=== PATIENT | female | born 1950 | race Two or more races ===

== ENCOUNTER 2024-04-17 03:44 | Emergency (ER) | payer OTHER ==
[~2024-04-17] VITALS: Ht 157.5 cm; Wt 95.7 kg
--- NOTE | 2024-04-17 04:13 | ED.PDOC ---
GI ASSESSMENT HPI Comments 73 year old female presents to the ED with a chief complaint on constipation onset 4 days. Patient states she has not had a bowel movement for the past 4 days and is currently experiencing rectal pain. Patient denies nausea, vomiting, diarrhea, abdominal pain, fever, dysuria, hematuria, chest pain, shortness of breath. No other symptoms or modifying factors present at this time. Chief Complaint: Constipation Time Seen by MD: 04:06 Reviewed Notes: Medications, Allergies Allergies: Coded Allergies: NO KNOWN ALLERGIES (Unverified , 04/17/24) Home Meds Active Scripts Bisacodyl (Dulcolax) 10 Mg Sup, 10 MG RE Q4HP PRN for 10 Days, #30 SUPP Prov:CAMERON RUBI MD 04/17/24 Polyethylene Glycol 3350 (Miralax) 17 Gm Pow, 17 GM PO BID for 100 Days, #1000 POW Prov:CAMERON RUBI MD 04/17/24 Information Source: Patient Timing: Days Duration: Since onset Prehospital treatment: None Quality: None Severity: Moderate Recent: None Recent Hx of: None Pain Location: None Associated sign and symptoms: Constipation Past Medical History PAST MEDICAL HISTORY: Denies Surgical History: Denies all surgeries PLANER FEEDER History: No Pertinent PLANER FEEDER History Family History Family History: Unknown Social History Smoker: Non-Smoker Alcohol: Denies ETOH Use Drugs: Denies Drug Use Lives In: Home Constitutional: denies: chills, diaphoresis, fatigue, fever, malaise, sweats, weakness, others EENTM: denies: blurred vision, double vision, ear bleeding, ear discharge, ear drainage, ear pain, ear ringing, eye pain, eye redness, hearing loss, mouth pain, mouth swelling, nasal discharge, nose bleeding, nose congestion, nose pain, photophobia, tearing, throat pain, throat swelling, voice changes, others Respiratory: denies: cough, hemoptysis, orthopnea, SOB at rest, shortness of breath, SOB with excertion, stridor, wheezing, others Cardiovascular: denies: chest pain, dizzy spells, diaphoresis, Dyspnea on exertion, edema, irregular heart beat, left arm pain, lightheadedness, palp itations, PND, syncope, others Gastrointestinal: reports: constipated, rectal pain; denies: abdomen distended, abdominal pain, blood streaked bowels, diarrhea, dysphagia, difficulty swallowing, hematemesis, melena, nausea, poor appetite, poor fluid intake, rectal bleeding, vomiting, others Genitourinary: denies: abnormal vagina bleeding, burning, dyspareunia, dysuria, flank pain, frequency, hematuria, incontinence, pain, , vagina discharge, urgency, others Neurological: denies: dizziness, fainting, headache, left sided numbness, left sided weakness, numbness, paresthesia, pre-existing deficit, right sided numbness, right sided weakness, seizure, speech problems, tingling, tremors, weakness, others Musculoskeletal: denies: back pain, gout, joint pain, joint swelling, muscle pain, muscle stiffness, neck pain, others Integumetry: denies: bruises, change in color, change in hair/nails, dryness, laceration, lesions, lumps, rash, wounds, others Allergic/Immunocompromised: denies: Difficulty Healing, Frequent Infections, Hives, Itching, others Hematologic/Lymphatic: denies: anemia, blood clots, easy bleeding, easy bruising, swollen glands, others Endocrine: denies: excessive hunger, excessive sweating, excessive thirst, excessive urination, flushing, intolerance to cold, intolerance to heat, unex plained weight gain, unexplained weight loss, others Psychiatric: denies: anxiety, bipolar disorder, depression, hopeless, panic disorder, schizophrenia, sleepless, suicidal, others All Other Systems: Reviewed and Negative Physical Exam General Appearance: Mild Distress, Normal HEENT: Normal ENT Inspection, Pharynx Normal, TMs Normal Neck: Full Range of Motion, Non-Tender, Normal, Normal Inspection Respiratory: Chest Non-Tender, Lungs Clear, No Accessory Muscle Use, No Respiratory Distress, Normal Breath Sounds Cardiovascular: No Edema, No JVD, No Murmur, No Gallop, Normal Peripheral Pulses, Regular Rate/Rhythm Breast Exam: Deferred Gastrointestinal: No Organomegaly, Non Tender, No Pulsatile Mass, Normal Bowel Sounds, Soft Genitalia: Deferred Pelvic: Deferred Rectal: Deferred Extremities: No calf tenderness, Normal capillary refill, Normal inspection, Normal range of motion, Non-tender, No pedal edema Musculoskeletal : Apperance: Normal Neurologic: Alert, film or tape librarian II-XII nml as Tested, No Motor Deficits, Normal Affect, Normal Mood, No Sensory Deficits Cerebellar Function: Normal Reflexes: Normal Skin: Dry, Normal Color, Warm Lymphatic: No Adenopathy Was a procedure done? Was a procedure done?: No GI differential Dx Differential Diagnosis: Bowel Obstruction, Constipation, Diverticular disease, Gastritis/PUD, Gastroenteritis, GI hemorrhage, Hernia, Dehydration, Other X-Ray, Labs, Meds, VS Vital Signs Date Time Temp Pulse Resp B/P (MAP) Pulse Ox O2 Delivery O2 Flow Rate FiO2 04/17/24 05:38 114 16 97 Room Air 04/17/24 05:38 97.4 114 16 184/73 (110) 97 97.4 04/17/24 04:00 97.4 114 16 184/73 (110) 97 Current Medications Medications (Trade) Dose Ordered Sig/Yolie Route Start Time Stop Time Status Last Admin Sodium Biphosphate/ Sodium Phosphate 135 ml ONCE ONCE RI 04/17/24 04:15 04/17/24 04:16 DC 04/17/24 04:18 Lactulose 60 ml ONCE ONCE PO 04/17/24 04:30 04/17/24 04:31 DC 04/17/24 04:41 Time of 1ST Reevaluation: 04:36 Reevaluation 1ST: Unchanged Time of 2ND Reevaluation: 06:00 Reevaluation 2ND: Improved Patient Education/Counseling: Diagnosis, Treatment, Prognosis Family Education/Counseling: No Family Present Departure 1 Departure Time of Disposition: 06:00 Impression: Primary Impression: Constipation Disposition: 01 HOME / SELF CARE / HOMELESS Condition: Stable e-Prescriptions Bisacodyl (Dulcolax) 10 Mg Sup 10 MG RE Q4HP PRN for 10 Days, #30 SUPP Prov: CAMERON RUBI MD 04/17/24 Polyethylene Glycol 3350 (Miralax) 17 Gm Pow 17 GM PO BID for 100 Days, #1000 POW Prov: CAMERON RUBI MD 04/17/24 Discharged With: Self Critical Care Note Critical Care Time?: No Stability Stability form required: No I personally scribed for CAMERON RUBI MD ([email or web address]) on 04/17/24 at 04:13. Electronically submitted by Echo Llanos ([email or web address]). CAMERON RUBI MD Apr 17, 2024 04:13
[2024-04-17] MEDS: GLYCERIN ADULT RECTAL SUPP PR ONE ×2 (04:14→04:15)
[2024-04-17] MEDS: FLEET ENEMA(ADULT) 135 ML PR ONE ×2 (04:15→04:18)
[2024-04-17] MEDS ORDERED: LACTULOSE 10g/15ml SOLN 473ML PR ONE (04:15)
[2024-04-17] MEDS: LACTULOSE 20Gm/30ML SOLN PO ONE (04:41)
[2024-04-17] MEDS ORDERED: BISA10SU45 RE (05:30)
[2024-04-17] MEDS ORDERED: POLY335015 PO (05:30)
[2024-04-17 05:38] VITALS: BP 184/73; PULSE 114; RESP 16; TEMP 97.4; O2SAT 97
== END 2024-04-17 05:39 | disposition home or self-care (01) ==
LOC: ER 03:44
DX: K59.00 Constipation, unspecified (principal); Z79.899 Other long term (current) drug therapy